=== PATIENT | female | born 2000 | race Hispanic/Latino ===

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

== ENCOUNTER 2021-01-13 07:10 | Emergency (ER) | payer OTHER ==
[2021-01-13 08:16] LABS: #Basophils 0.1 thou/uL (0.0-0.2); #Lymphocytes 1.2 thou/uL (1.20-3.40); #Monocytes 0.8 thou/uL (0.11-0.59); %Basophils 0.7 % (0.0-1.0); %Eosinophils 0.1 % (0.0-10.0); %Lymphocytes 12.2 % (28.0-48.0); %Monocytes 7.7 % (0.0-4.0); %Neutrophils 79.4 % (31.0-61.0); Hemoglobin 14.7 g/dL (12.0-16.0); Mean Corpuscular HGB CONC 32.9 g/dL (32.0-36.0); Mean Corpuscular Hemoglobin 31.6 pg (25.0-35.0); Mean Corpuscular Volume 96.1 fL (78.0-98.0); Platelet Count 255 thou/uL (130-400); RBC Distribution Width 12.9 % (11.5-14.5); Red Blood Cell (RBC) Count 4.64 mill/uL (4.00-5.20); White Blood Cell (WBC) Count 10.1 thou/uL (4.8-10.8)
[2021-01-13 08:17] LABS: ALT (SGPT) 38 U/L (8-55); AST (SGOT) 60 U/L (5-30); Albumin 4.3 g/dL (3.5-5.0); Alkaline Phosphatase 92 U/L (40-100); Anion Gap 17 mmol/L (10-20); BUN (Urea Nitrogen) 13 mg/dL (8.4-21.0); Bilirubin, Total 1.6 mg/dL (0.2-1.2); Calc. Creatinine Clearance 0 mL/min (70-130); Calcium 10.5 mg/dL (7.8-10.44); Carbon Dioxide 30 mmol/L (22-29); Chloride 97 mmol/L (98-107); Globulin 3.3 g/dL (2.4-3.5); Glucose 95 mg/dL (70-105); Potassium 3.8 mmol/L (3.5-5.1); Protein, Total 7.6 g/dL (6.0-8.3); Sodium 140 mmol/L (136-145)
[2021-01-13 08:24] LABS: Bilirubin Negative (Negative); Blood, Urine Trace (Negative); Clarity Clear (Clear); Glucose, Urine (Dipstick) Negative (Negative); Ketone, Urine Negative (Negative); Leukocyte Negative (Negative); Nitrite Negative (Negative); Protein, Urine (Dipstick) 100 mg/dL (Neg-Trace); Specific Gravity, Urine 1.015 (1.005-1.030); Urobilinogen 0.2 mg/dL (Less than 2); pH, Urine Greater/Equal 9.0 (5.0-9.0)
[2021-01-13 08:25] LABS: Bacteria/HPF Rare-Few HPF (None Seen); RBC/HPF 0-3 HPF (0-3); Squamous Epithelial 0-3 HPF (0-3); WBC/HPF 0-3 HPF (0-3)
[2021-01-13 08:26] LABS: Pregnancy Test - Urine (BHCG) Negative (Negative); Pregu Control Background? CLEAR/WHITE (CLR/WHITE); Pregu Control Bar Appear? YES (CONTROL BAR); Specific Gravity 1.015 (1.002-1.036)
[2021-01-13 08:29] LABS: CK (CPK) 818 U/L (29-168)
[2021-01-13 08:30] LABS: Lipase 20 U/L (8-78)
[2021-01-13] MEDS ORDERED: Sodium Chloride 0.9% 1,000 ML ONE (08:34)
[2021-01-13] MEDS ORDERED: Ondansetron PF 4 MG/2 ML Vial ONE (08:34)
== END 2021-01-13 09:30 | disposition home or self-care (01) ==
LOC: MADERS 07:10
DX: M62.82 Rhabdomyolysis (principal); R63.0 Anorexia
CPT/HCPCS: 80053; 81003; 81015; 81025; 82150; 82550; 83690; 85025; 96374; J2405; J7050